=== PATIENT | male | born 1955 | race Caucasian/White ===

== ENCOUNTER 2018-10-10 18:05 | Emergency (ER) | payer SELFPAY ==
[~2018-10-10] VITALS: Ht 172.7 cm; Wt 85.0 kg
[~2018-10-10 18:05] MED LIST: EPINEPHRINE 0.1MG/ML (1:10,000) 10ML SYR ONE; SODIUM BICARBONATE 8.4% 10MEQ/10ML SYR IV ONE
[2018-10-10 18:06] VITALS: BP 185/103
== END 2018-10-10 18:12 | disposition expired ==
LOC: ER 18:05
DX: I46.9 Cardiac arrest, cause unspecified (principal); I10 Essential (primary) hypertension; Z95.1 Presence of aortocoronary bypass graft; Z98.890 Other specified postprocedural states
CPT/HCPCS: 92950; 99285; J3490